=== PATIENT | female | born 1970 | race Caucasian/White ===

== ENCOUNTER 2023-02-26 15:16 | Outpatient (REF) | payer SELFPAY | END 2023-02-26 15:17 | disposition home or self-care (01) | LOC: HO.LNP 15:16 | PROVIDERS: Visit Provider Internal Medicine | DX: Z13.89 Encounter for screening for other disorder (principal) | CPT/HCPCS: 86481; 86706; 86735; 86762; 86765; 86787 ==

== ENCOUNTER 2024-12-03 03:44 | Emergency (ER) | payer OTHER, SELFPAY ==
--- NOTE | ~2024-12-03 | XR_ITS ---
CLINICAL HISTORY: s p fall 2 view right knee Comparison: None provided Findings: Bones intact. No dislocations. Mild medial compartment joint space narrowing. No joint effusion. No radiopaque foreign body. IMPRESSION: 1. No acute findings. This document has been electronically signed by: Malik Velazquez MD on 12/03/2024 06:18:46
[2024-12-03 03:51] VITALS: BP 144/77; PULSE 64; RESP 14; TEMP 36.6; O2SAT 98; BMI 26.9
--- NOTE | 2024-12-03 05:14 | PC.NURSE ---
pt reports R. knee pain intermittently up to 3, states does not need interventions at this time, offered ice or heat pack, tylenol/ibuprofen. call zuñiga within reach. awaiting xr of R. knee.
--- NOTE | 2024-12-03 05:40 | ED_ITS ---
HPI - Extremity Injury (Lower) General Chief Complaint: Extremity Injury, Lower Stated Complaint: workman comp, right knee injury Time Seen by Provider: 12/03/24 04:13 Source: patient Mode of arrival: ambulatory Limitations: no limitations History of Present Illness ED Provider: HPI Narrative: Patient works at [employer] apparently patient was responding to bed alarm walked fast and her right leg gave out patient fell hitting her head to the door complaining of right knee pain no loss of consciousness no other injuries patient did not have any knee pain or injuries in the past Related Data Allergies Allergy/AdvReac Type Severity Reaction Status Date / Time doxycycline AdvReac Nausea and Verified 12/03/24 03:54 Vomiting Review of Systems Review of Systems: Yes all other systems are reviewed and are negative [facility] Social History Social History Advance Directives: Yes Advance Directives Information Provided: Yes Advance Directives on File: No Physical Exam Vital Signs: Vital Signs: Last Vital Signs Temp 97.9 F 12/03/24 06:49 Pulse 64 12/03/24 06:49 Resp 14 12/03/24 06:49 BP 144/77 H 12/03/24 06:49 Pulse Ox 98 12/03/24 06:49 O2 Del Method Room Air 12/03/24 06:49 BMI result Body Mass Index 26.9 Appearance: Alert. Oriented X3. No acute distress. Eyes: PERRLA, No Nystagmus ENT: Pharynx normal. Oral Mucosa moist atraumatic normocephalic Neck: Normal inspection. Neck supple. CVS: Normal heart rate and rhythm. Pulses normal. Respiratory: No respiratory distress. Equal air entry bilateral, no wheezing/rales/rhonchi Abdomen: Soft and nontender. Bowel sounds are present, no mass palpable, no CVA tenderness Skin: Skin warm and dry. Normal skin color. Normal skin turgor. Extremities: No lower extremity edema. No calf tenderness right knee with diffuse tenderness no knee effusion anterior drawer sign and Angel sign negative Neuro: Oriented X 3. No motor deficit. No sensory deficit.No cerebellar signs , cranial nerves II-XII intact Medical Decision Making Medical Decision Making MDM Narrative: Patient clinically right knee contusion x-ray negative for acute knee immobilizer was applied advised to take analgesics apply ice follow up as outpatient if pain continues Independent Interpretation I performed an independent interpretation of an: Plain X-Ray Interpretation: No acute Discharge Plan Discharge Clinical Impression: Contusion of knee, right Patient Disposition: Home, Self-Care Instructions: Knee Pain (ED) Additional Instructions: Take Tylenol/Motrin for pain your x-rays negative for fracture or significant injury Wear knee brace for support till you get better Follow with your PCP as needed Interventions: ED Discharge Assessment Last Done: 12/03/24 06:49 Discharge Date/Time: 12/03/24 06:58 Print Language: Chadian
[2024-12-03 06:49] VITALS: BP 144/77; PULSE 64; RESP 14; TEMP 36.6; O2SAT 98
== END 2024-12-03 06:58 | disposition home or self-care (01) ==
PROVIDERS: Emergency Provider Internal Medicine; PCP Internal Medicine
DX: S80.01XA Contusion of right knee, initial encounter (principal); M25.561 Pain in right knee; X58.XXXA Exposure to other specified factors, initial encounter; Y93.9 Activity, unspecified; Y92.9 Unspecified place or not applicable; Y99.8 Other external cause status
CPT/HCPCS: 73560; 99283

== ENCOUNTER → 2024-12-03 04:21 | Outpatient (BNV) | payer OTHER, SELFPAY | PROVIDERS: Emergency Provider Internal Medicine; PCP Internal Medicine; Visit Provider Radiology Vascular & Interventional Radiology | DX: S80.01XA Contusion of right knee, initial encounter (principal) | CPT/HCPCS: 73560 ==

== ENCOUNTER 2025-05-24 08:48 | Outpatient (AMB) | payer OTHER, SELFPAY ==
--- NOTE | 2025-05-24 09:17 | A.PHYSOV ---
Vital Signs 05/24/25 09:19 Height 5 ft 4 in Weight 157 lb BMI 26.9 Intake Visit Reasons: NPV Self Ref- thoracic outlet syndrome Intake Note: Patient is a 54 year old female in office today as a new patient for neck pain that travels to shoulder on left side mainly. Patient seen in past for left side. Warehouse Stocker Required: No Allergies nitrofurantoin Allergy (Unknown, Verified 05/19/25 12:43) Unknown pseudoephedrine Allergy (Unknown, Verified 05/19/25 12:43) Unknown scopolamine Allergy (Unknown, Verified 05/24/25 09:19) Unknown doxycycline Adverse Reaction (Verified 12/03/24 03:54) Nausea and Vomiting HPI Comments Details: History of Present Illness The patient is a 54 year old female presenting for evaluation of suspected left-sided thoracic outlet syndrome. She is left-handed, and her current symptoms began approximately three months ago after she was exercising. She reports numbness and tingling in her left hand, a feeling of heaviness in the arm when raised overhead, significant neck fatigue, and constant muscle spasms in the neck region. The patient has a history of right-sided thoracic outlet syndrome, which was diagnosed approximately 6-7 years ago. At that time, symptoms were severe, causing her to drop items and have an inability to lift her arm above her head. It was managed non-surgically with two series of Botox injections into the scalene muscles and intensive physical therapy, and is now about 95% improved, though some weakness persists. A prior workup for her right-sided symptoms included a cervical spine MRI on February 26, 2017, which revealed mild degenerative changes. She has not had any recent imaging of her cervical spine since then and reports no recent injuries. For her current symptoms, she is doing home exercises with a assistant athletic trainer, who is also a physical therapist, and sees a chiropractor weekly for ultrasound and dry needling. She has been receiving physical therapy and has been performing physician guided home exercises. Pain Description - Onset and Timing: The pain started about 3 months ago and its occurrence is unpredictable, happening at any time, even at rest. - Quality and Character: The pain is described as very strong, tiring, and comparable to a severe toothache. - Location: The pain is primarily in the left neck and shoulder area. - Associated Symptoms: The pain is accompanied by numbness and tingling in the left hand, muscle spasms, and a feeling of heaviness in the arm when raised. - Exacerbating Factors: The pain can flare up after work or with certain movements like turning the neck. Results - Imaging: - Cervical Spine MRI (02/26/2017): Mild degenerative changes. [facility] Medical History (Updated 05/24/25 @ 09:44 by Omi Bess DO) Thoracic outlet syndrome Neck pain Cervical radiculitis Surgical History History of History of hernia repair History of cholecystectomy Social History Household Members: Spouse and Children Alcohol intake: current Alcohol intake frequency: does not drink Patient Tobacco Use Status: Never used Tobacco Current occupational status: employed Review of Systems Narrative Review of Systems - Musculoskeletal: Reports neck pain, constant muscle spasms in the neck, and a feeling of heaviness in the left arm when raised overhead. - Neurological: Reports numbness and tingling in the left hand. - Constitutional: Reports feeling tired from the pain. - All other systems were reviewed and are negative. Physical Exam Exam Exam: Physical Exam - General: Patient appears to have muscle tightness. - Neck: Palpation reveals tenderness and spasm in the upper trapezius/neck region. - Shoulder: No tenderness on palpation over the shoulder joint itself. - Special Tests: A positive Adson's test was noted on the left side. - Neurological: Spurling maneuver was negative. Neurological examination of upper extremities was nonfocal. Patient demonstrated no upper motor neuron signs. Cervical range of motion was preserved. Examination of the left shoulder was unremarkable negative Bauman and Neer signs, negative drop-arm test, negative shoulder apprehension test. Vital Signs: BMI result Body Mass Index 26.9 Assessment & Plan Assessment & Plan (1) Cervical radiculitis: Code(s): M54.12 - Radiculopathy, cervical region Category: Medical (2) Neck pain: Code(s): M54.2 - Cervicalgia Category: Medical (3) Thoracic outlet syndrome: Code(s): G54.0 - Brachial plexus disorders Category: Medical Plan Pain Management - Affect: The patient reports feeling tired from the amount of pain she experiences. - Analgesia: The patient describes her pain as strong when it occurs, similar to a severe toothache. - Activities of Daily Living: The pain can flare up after work. - Aberrant Drug-Related Behaviors: No aberrant drug-related behaviors were discussed. Plan Patient was informed and verbally consented to the use of an ambient scribe for clinic note documentation during this visit. 1. Left Upper Extremity Pain And Paresthesia The patient presents with left-sided neck and arm symptoms including pain, numbness, and tingling, which she suspects is thoracic outlet syndrome given her history. The initial approach is to evaluate for more common causes, specifically cervical radiculopathy, before considering thoracic outlet syndrome. The plan is to obtain a cervical spine X-ray and MRI to assess for any underlying pathology. The patient will proceed with the X-ray and await a call for MRI scheduling after insurance approval. Follow-up will be scheduled in approximately one month to review the results, with the understanding that the appointment may need to be postponed if the MRI is not yet completed. Discussion Notes I discussed with the patient that while her symptoms could be consistent with thoracic outlet syndrome, we should first investigate more common causes, such as a cervical spine issue like radiculopathy. I explained the plan to order a cervical spine X-ray and MRI. I informed her that she could get the X-ray done at her convenience at [facility], but the MRI requires insurance approval, and the imaging department will call her to schedule it. We will schedule a follow-up appointment in about a month, but I advised her to postpone it if the MRI has not been completed by then, as the results are necessary for our next steps. The patient agreed with this plan, stating it would provide peace of mind to differentiate between a neck issue and thoracic outlet syndrome. Patient Instructions - Continue with your home exercises as you have been doing. - Go to [facility] to have an X-ray of your neck. - You will need an MRI of your neck, which requires insurance approval. Please wait for the hospital to call you to schedule this test. - We will schedule a follow-up appointment for about one month from now. - If you have not completed the MRI by the time of your next appointment, please call the office to reschedule. Orders: Orders MR cervical spine wo con Today M54.12 - Radiculopathy, cervical region, M54.2 - Cervicalgia XR cervical spine 3V Today M54.12 - Radiculopathy, cervical region, M54.2 - Cervicalgia Coding Level of Care Code New Pt Level 4 (40681) Add On Problem Visit Only Diagnoses Cervical radiculitis M54.12 Neck pain M54.2 Thoracic outlet syndrome G54.0
[2025-05-24 09:19] VITALS: BMI 26.9
== END 2025-05-24 09:43 | disposition home or self-care (01) ==
LOC: HO.HPHYS 08:49
PROVIDERS: PCP Internal Medicine; Visit Provider Physical Medicine & Rehabilitation
DX: M54.12 Radiculopathy, cervical region (principal); M54.2 Cervicalgia; G54.0 Brachial plexus disorders
CPT/HCPCS: 99204

== ENCOUNTER 2025-05-25 07:29 | Outpatient (REF) | payer OTHER, SELFPAY ==
--- NOTE | ~2025-05-25 | XR_ITS ---
EXAMINATION: XR CERVICAL SPINE 4-5 VIEWS HISTORY: M54.12 - Radiculopathy, cervical region COMPARISON: There are no prior studies available for comparison. FINDINGS: AP, lateral, and open-mouth odontoid views of the cervical spine are submitted. Osseous mineralization is normal. Seven cervical vertebral bodies are identified maintaining normal height without evidence of fracture or subluxation. There is straightening of the normal cervical lordosis. There is mild degenerative disc disease with disc space narrowing and osteophyte formation. This is most prominent at C5-6 level. The odontoid and lateral masses of C1 are intact. There is no prevertebral soft tissue swelling. XR/XR cervical spine 4V IMPRESSION: Straightening of the normal cervical lordosis. Mild degenerative disc disease. Electronically signed by: Tod Castillo MD 05/25/2025 07:53 AM STEVE
--- OUTSIDE RECORDS SUMMARY | 2025-05-25 07:32 | XMS_ITS | Clinical Summary ---
Author Organization [facility] [employer] [facility] it Address [address] [place] [address] Care Team Providers Care Student Counselor Name Role Phone Jose Ramos MD Primary Care Provider [phone] Social History Tobacco Use Types Packs/Day Years Used Date Smoking Tobacco: Never Assessed Comments Unknown Sex and Gender Information Value Date Recorded Sex Assigned at Not on file Legal Sex Female 8:14 AM EST Gender Identity Not on file Sexual Orientation Not on file Plan of Treatment Health Maintenance Due Date Last Done Comments DTaP,Tdap,and Td Vaccines (1 - Tdap) 09/22/1990 06/09/2010 Hepatitis B Vaccines (1 of 3 - 19+ 3-dose series) 09/22/1990 Cervical Cancer Screening: Pap Smear 09/22/1992 Pneumococcal Vaccine: 50+ Years (1 of 1 - PCV) 09/22/2021 10/18/2007 Zoster Vaccines (1 of 2) 09/22/2021 07/14/2023, 02/12 Breast Cancer Screening 02/21/2023 02/21/2021 Depression Screening 06/14/2024 COVID-19 Vaccine ( - 2024- season) 2025 04/07/2024, 04/30/2023, 04/02/2021, Additional history exists Influenza Vaccine (#1) 2025 , 05/31/2023, 04/01/2020, Additional history exists RSV Immunization Adult Patients (1 - 1-dose 75+ series) 09/22/2046 HIB Vaccines Aged Out No longer eligi ble based on patient's age to complete this topic HPV Vaccines Aged Out No longer eligi ble based on patient's age to complete this topic Hepatitis A Vaccines Aged Out No long er eligible based on patient's age to complete this topic IPV Vaccines Aged Out No longer eligi ble based on patient's age to complete this topic MMR Vaccines Aged Out No longer eligi ble based on patient's age to complete this topic Meningococcal ACWY Vaccine Aged Out N o longer eligible based on patient's age to complete this topic Meningococcal B Vaccine Aged Out No l onger eligible based on patient's age to complete this topic RSV Immunization Patients Under 20 months Aged Out No longer eligible based on patient's age to complete this topic Varicella Vaccines Aged Out 07/14/2023, 03/02/2023 No longer eligible based on patient's age to complete this topic Procedures Procedure Name Priority Date/Time Associated Diagnosis Comments [facility] Routine 02/21/2021 11:45 AM EDT Encounter for screening mammogram for malignant neoplasm of breast from Last 3 Months or Most Recently Relevant to Health Maintenance Results * [facility] SCREENING DIGITAL (02/21/2021 11:45 AM EDT) Anatomical Region Laterality Modality Mammography 02/21/2021 8:21 AM EDT Narrative 02/21/2021 11:45 AM EDT [facility] Diagnostic Imaging Department [address] [place] [address] Patient: MAXINE WU Kat /Age/Sex: 1970 - 50 - F Unit#: [id number] [facility] Mnemonic/Ordering Site: [facility] Ordering Physician: HEIKE SIEGEL MD Huang Screening Digital - 02/21/21851 EXAM: [facility] Screening Digital EXAM DATE AND TIME: 02/21/2021 8:54 AM HISTORY: Screening. COMPARISON: 01/13/17, 09/13/13 TECHNIQUE: CC and MLO views of both breasts were obtained using full field digital mammography. Bilateral digital breast tomosynthesis was performed in the MLO projection. Computer aided detection with the [employer] was employed. TISSUE DENSITY: c. The breasts are heterogeneously dense, which may obscure small masses. FINDINGS: No suspicious masses, grouped microcalcifications, or areas of architectural distortion are seen. The skin and vascularity are unremarkable. IMPRESSION: Stable mammographic appearance of the breasts. No evidence of malignancy is seen. A negative mammogram in the presence of a clinically suspicious palpable abnormality does not preclude the possibility of malignancy or alter the indications for biopsy. BI-RADS: Category 1: Negative RECOMMENDATION(S): 1: Routine screening mammogram BILATERAL in 1 year. 64907, 18434 3341F, 7025F Dictating Physician: THEO LAWSON MD Electronically Signed by: THEO LAWSON MD Dic Date/Time: 02/21/21 1145 Sign date/Time: 02/21/21 1145 Procedure Note Theo Lawson MD - 06/10/2022 [facility] Diagnostic Imaging Department [address] [place], [place] [id number] Patient: MAXINE WU/Age/Sex: 1970 - 50 - F Unit#: [id number] [facility] Ordering Physician: HEIKE SIEGEL MD [facility] Screening Digital - 02/21/21 - 851 EXAM: Huang Screening Digital EXAM DATE AND TIME: 02/21/2021 8:54 AM HISTORY: Screening. COMPARISON: 01/13/17, 09/13/13 TECHNIQUE: CC and MLO views of both breasts were obtained using fullfield digital mammography. Bilateral digital breast tomosynthesis was performedin the MLO projection. Computer aided detection with the [employer] employed. TISSUE DENSITY: c. The breasts are heterogeneously dense, which mayobscure small masses. FINDINGS: No suspicious masses, grouped microcalcifications, or areas ofarchitectural distortion are seen. The skin and vascularity are unremarkable. IMPRESSION: Stable mammographic appearance of the breasts. No evidence of malignancyis seen. A negative mammogram in the presence of a clinically suspicious palpable abnormality does not preclude the possibility of malignancy or alter the indications for biopsy. BI-RADS: Category 1: Negative RECOMMENDATION(S): 1: Routine screening mammogram BILATERAL in 1 year. 56187, 06554 3341F, 7025F Dictating Physician: THEO LAWSON MD Electronically Signed by: THEO LAWSON MD Dic Date/Time: 02/21/21 1145 Sign date/Time: 02/21/21 114 Heike Siegel MD IMG BI PROCEDURES Final Resu lt from Last 3 Months or Most Recently Relevant to Health Maintenance Care Teams Student Counselor Relationship Specialty Start Date End Date Jose Ramos MD [address] [facility] [phone] PCP - General Internal Medicine 01/15/17
--- OUTSIDE RECORDS SUMMARY | 2025-05-25 07:33 | XMS_ITS | Patient Health Record ---
Author Organization [facility] Address [address] [place] [id number] Care Team Providers Care Clinique Counter Manager Name Role Phone Kevin Sprague Unavailable [phone] Allergies Allergen (clinical drug ingredient) Drug/Non Drug Allergy documented on EMR Reaction Allergy Type Onset Date Status doxycycline Doxycycline Unknown Drug Allergy Act kan Reason For Referral No Information Medications Medication SIG (Take, Route, Fr equency, Duration) Notes Start Date End Date Status traMADol HCl 50 MG 1 tablet as needed O rally Once a day HS Active Methocarbamol 1500 MG HS Activ e Problems Problem Type SNOMED Code ICD Code Onset Dates Problem Status W/U Status Risk Notes Problem Mixed hyperlipidemia (185570983) Mixed hyperlipidemia (E78.2) Active confirmed Problem Brachial plexus disorder (2608393) Brachial plexus disorders (G54.0) Active confirmed Problem Menopause (410149295) Menopausal and female climacteric states (N95.1) Active confirmed Plan Of Treatment Pending Test Test Name Order Date COMPREHENSIVE METABOLIC PANEL 10/18/2023 IRON, TOTAL 10/18/2023 CBC (INCLUDES DIFF/PLT) 10/18/2023 CARDIO IQ(TM) HEMOGLOBIN A1c 10/18/2023 DHEA SULFATE 10/18/2023 VITAMIN B12/FOLATE, SERUM PANEL 10/18/19 24 FERRITIN 10/18/2023 TSH W/REFLEX TO FT4 10/18/2023 PREGNENOLONE, LC/MS/MS 10/18/2023 CARDIO IQ(R) ADVANCED LIPID PANEL AND IN FLAMMATION PANEL 10/18/2023 Cardio IQ(R) Oxidized LDL 10/18/2023 OMEGACHECK(TM) 10/18/2023 CARDIO IQ(R) INSULIN RESISTANCE PANEL WI TH SCORE 10/18/[address] Score 10/18/2023 Insurance Providers Payer Name Payer Address Payer Phone Subscriber Number Group Number Insured Name Patient Relationship to Insured Coverage Start Date Coverage End Date [employer] [address] [place] [id number] Kenzie Khalil Self - patient is the insured 4 Medical (General) History Medical History History ICD Code cholecystectomy
--- OUTSIDE RECORDS SUMMARY | 2025-05-25 07:33 | XMS_ITS ---
[facility] Name [facility] History of Medication Use Medication Directions Dispensed Refills Start Date End Date Stat us Methocarbamol Methocarbamol acti ve traMADol HCl 50 MG traMADol HCl 50 MG active Allergies Allergen Reaction Severity Comment Documented Date Source Statu s DOXYCYCLINE CT_[facility] Encounters Encounter Type Encounter Reason Primary Diagnosis Location Date [facility] 11/16/2023 [facility] 10/18/2023 [facility] 07/28/2023 Care Team Organization Name Specialty Phone Email Start Date End Da te [facility] Carolynn Olvera Primary [facility] 07/29/202305/08
--- OUTSIDE RECORDS SUMMARY | 2025-05-25 07:33 | XMS_ITS | Patient Health Record ---
Author Organization [facility] Address [address] [place] [address] Care Team Providers Care Flexographic Press Operator Name Role Phone Richard Bull MD, Jose Primary Care Provider Unavail able Carolynn Hernandez Unavailable [phone] Allergies Allergen (clinical drug ingredient) Drug/Non Drug Allergy documented on EMR Reaction Allergy Type Onset Date Status doxycycline Doxycycline diarreah Drug Allergy Act kan scopolamine Scopolamine blurry vision Drug Allergy Active Reason For Referral No Information Medications Medication SIG (Take, Route, Frequency, Duration) Notes Start Date End Date Status Methocarbamol 1000 MG/10ML 10 mL as need ed Injection every 8 hrs; Duration: 3 day(s) 08/04/2023 Active Ultram 50 MG 1 tablet as needed Orally every 6 hrs Active Robaxin 500 MG 1.5 tablets Orally e very 4 hrs Unknown Social History Tobacco Use: Social History Observation Description Date Details (start date - stop date) Never Smoker NA - NA Tobacco Use/Smoking Question Answer Notes Are you a: nonsmoker Additional Findings: Tobacco Non-User Current no n-smoker Alcohol Screen Question Answer Notes Did you have a drink containing alcohol in the p ast year? No Points 0 Interpretation Negative Tobacco use other than smoking: Question Answer Notes Are you an other tobacco user? No Problems No Known Problems Plan Of Treatment Pending Test Test Name Order Date 42024 I&D ABSCESS- SIMPLE,SINGLE 018 Insurance Providers Payer Name Payer Address Payer Phone Subscriber Number Group Number Insured Name Patient Relationship to Insured Coverage Start Date Coverage End Date Cigna [address] [place]anisha [place], [place] [phone] [id number] MARIAM WU Spouse - patient is the spouse of the insured Medical (General) History Medical History History ICD Code Back,Hip,and Knee pain Broken bones covid-19 Reflux ( GERD) Sciatica Surgical History Surgery Date(Month/Year) section 2002 Hernia Repair & Lap allan 2016
== END 2025-05-25 07:30 | disposition home or self-care (01) ==
LOC: HO.XRAY 07:29
PROVIDERS: Visit Provider Physical Medicine & Rehabilitation
DX: M54.12 Radiculopathy, cervical region (principal)
CPT/HCPCS: 72050

== ENCOUNTER → 2025-05-25 07:34 | Outpatient (BNV) | payer OTHER, SELFPAY | PROVIDERS: Visit Provider Radiology Diagnostic Radiology | DX: M54.12 Radiculopathy, cervical region (principal); M50.30 Other cervical disc degeneration, unspecified cervical region | CPT/HCPCS: 72050 ==

== ENCOUNTER 2025-06-12 19:21 | Outpatient (REF) | payer OTHER, SELFPAY ==
--- OUTSIDE RECORDS SUMMARY | 2017-02-25 23:00 | XMS_ITS | Encounter Summary ---
Author Organization [facility] Address [address] [place] [address] [place] [id number] Phone Care Team Providers Care Assistant Professor Of Physics Name Role Phone Unavailable Primary Care Provider Unavailabl e Reason for Visit * MRI/CAT Scan - Closed Specialty Diagnoses / Procedures Referred By Contelie t Referred To Contact Procedures MRI Spine (Bone) Outside (No Interpretation) Lakisha Du DO [address] [facility] [place] [address] Phone: tel: fax: [email or web address] Referral ID Status Reason Start Date Expiration Date Visits Re quested Visits Authorized [id number] Closed 10/12/2017 10/12/2018 1 1 Encounter Details Date Type Department Care Team (Late st Contact Info) Description 02/26/2017 Hospital Encounter [facility] General Imaging [address] [place] [address] Lakisha Du DO [address] [id number] [place] [address] [email or web address] Social History Tobacco Use Types Packs/Day Years Used Date Smoking Tobacco: Never Smokeless Tobacco: Never Alcohol Use Standard Drinks/Week Comments No 0 (1 standard drink = 0.6 oz pur e alcohol) Education Answer Date Recorded Are you interested in more education? Not on humza e 10/09/2022 Are you concerned about learning? Not on file 10/09/2022 No 10/09/2022 No 10/09/2022 Digital Access Answer Date Recorded No 11/07/2022 No 11/07/2022 No 11/07/2022 Reliable internet access at home? Not on file 11/07/2022 Device with a working camera? Not on file Comments Unknown Sex and Gender Information Value Date Recorded Sex Assigned at Not on file Legal Sex Female 12:39 PM EDT Gender Identity Not on file Sexual Orientation Not on file documented as of this encounter Plan of Treatment Not on file documented as of this encounter Procedures Procedure Name Priority Date/Time Associated Diagnosis Comments MRI SPINE MUSCULOSKELETAL FOCUS OUTSIDE (NO INTERPRETATION) Routine 02/26/2017 12:00 AM EDT documented in this encounter Results * MRI Spine (Bone) Outside (No Interpretation) (02/26/2017 12:00 AM EDT) Narrative [facility] IMG INTERFACES - 10/12/2017 9:16 AM EDT This study is for PACS storage only and not for interpretation. Lakisha uD DO IMG OUTSIDE IMAGING W/OUT INT ERPRETATION Final Result [facility] IMG INTERFACES documented in this encounter Visit Diagnoses Not on filedocumented in this encounter Additional Source Comments The information contained in this document represents components of the legal health record. It is not the complete legal health record.[facility]
--- NOTE | ~2025-06-12 | MR_ITS ---
EXAMINATION: MR CERVICAL SPINE WITHOUT CONTRAST CLINICAL INFORMATION: Cervicalgia. 54-year-old female, workup for thoracic outlet syndrome. Left arm weakness, pain, and numbness. COMPARISON: No prior MRI. Correlation made with cervical spine radiographs 05/25/2025. TECHNIQUE: Multiplanar multisequence MR imaging of the cervical spine was done prior to and without the administration IV gadolinium. Examination was performed on a 1.5 Shelbie Siemens unit, using standard sequences. FINDINGS: CORONAL ALIGNMENT: -Normal. SAGITTAL ALIGNMENT: -Straightening of the normal lordosis. -No significant subluxations. CRANIOCERVICAL JUNCTION/C1-2 ARTICULATIONS: -Intact and normally aligned. VERTEBRAL BODIES/BONE MARROW: -There is no fracture, compression deformity, or region of bone marrow edema. There is no abnormal infiltrating bone marrow signal. -There are no significant endplate changes. DISCS: -There is moderate loss of disc height and signal at C5-6. -There is otherwise mild loss of height and signal at the other levels. CERVICAL CORD: -Normal in caliber and signal throughout. There is no expansion, thinning, or signal abnormality. There is no regional cord impingement present. PARAVERTEBRAL SOFT TISSUES: -Normal. -The thyroid is obscured by a saturation band. VISUALIZED INTRACRANIAL STRUCTURES: -Imaged contents of the posterior fossa are normal in appearance. Preserved flow voids within the bilateral vertebral arteries. Normal-appearing sella. AXIAL DISC SPACE IMAGING: C2-C3: No central canal or neural foraminal narrowing. Mild hypertrophic facet changes bilaterally, contributing to minimal right greater than left neural foraminal stenosis. C3-C4: No significant central canal or neural foraminal narrowing. Mild right greater than left hypertrophic facet changes contributes to mild right greater than left neural foraminal narrowing. C4-C5: Minimal shallow disc bulging is present. There is no central canal stenosis. The neural foramina are patent bilaterally. C5-C6: There is no central canal or lateral recess narrowing. Mild bilateral uncinate spurring contributes to mild bilateral neural foraminal narrowing left greater than right. C6-C7: There is a left paracentral small protrusion of disc material. This indents upon the ventral thecal sac but does not approach the cord. There is no central canal or neural foraminal narrowing. C7-T1: There is no central canal or neural foraminal narrowing. There is mild facet arthrosis bilaterally. T1-T4: No central canal or neural foraminal narrowing. MR/MR cervical spine wo con IMPRESSION: 1. Very mild spondylosis of the cervical spine. 2. There is no evidence of significant central canal stenosis, cord impingement or signal abnormality, or significant neural foraminal narrowing at any level. See above for details. Electronically signed by: Brian Osorio MD 06/13/2025 08:22 AM STEVE
--- OUTSIDE RECORDS SUMMARY | 2025-06-12 19:28 | XMS_ITS | Encounter Summary ---
Author Organization [facility] Address [address] [place] [address] Phone Care Team Providers Care Mental Retardation Nurse Name Role Phone Jose Ramos MD Primary Care Provider [phone] Encounter Details Date Type Department Care Team (Late st Contact Info) Description 10/12/2017 Procedure Pass [facility] [address] [place] [address] Social History Tobacco Use Types Packs/Day Years Used Date Smoking Tobacco: Never Smokeless Tobacco: Never Alcohol Use Standard Drinks/Week Comments No 0 (1 standard drink = 0.6 oz pur e alcohol) Comments Unknown Sex and Gender Information Value Date Recorded Sex Assigned at Not on file Legal Sex Female 12:39 PM EDT Gender Identity Not on file Sexual Orientation Not on file documented as of this encounter Plan of Treatment Not on file documented as of this encounter Visit Diagnoses Not on filedocumented in this encounter Care Teams Mental Retardation Nurse Relationship Specialty Start Date End Date Jose Ramos MD [address] [facility] [place] [address] PCP - General Internal Medicine 04/06/17 documented as of this encounter Additional Source Comments The information contained in this document represents components of the legal health record. It is not the complete legal health record.[facility]
--- OUTSIDE RECORDS SUMMARY | 2025-06-12 19:28 | XMS_ITS | Patient Health Record ---
Author Organization [facility] Address [address] [facility] [place] [address] Care Team Providers Care Home Planning Consultant Salesperson Name Role Phone Richard Bull MD, Jose Primary Care Provider Unavail able Carolynn Hernandez Unavailable [phone] Allergies Allergen (clinical drug ingredient) Drug/Non Drug [...] Treatment Pending Test Test Name Order Date 00092 I&D ABSCESS- SIMPLE,SINGLE 018 Insurance Providers Payer Name Payer Address Payer Phone Subscriber Number Group Number Insured Name Patient Relationship to Insured Coverage Start Date Coverage End Date Cigna [address] [place]anish[place], [place] [phone] [id number] MARIAM WU Spouse - patient is the spouse of the insured Medical (General) History Medical History History ICD Code Back,Hip,and Knee pain Broken bones covid-19 Reflux ( GERD) Sciatica Surgical History Surgery Date(Month/Year) section 2002 Hernia Repair & Lap allan 2016
--- OUTSIDE RECORDS SUMMARY | 2025-06-12 19:28 | XMS_ITS | Encounter Summary ---
Author Organization [facility] Address [address] [place] [phone] Phone Care Team Providers Care Reed Polisher Name Role Phone Jose Ramos MD Primary Care Provider [phone] Encounter Details Date Type Department Care Team (Late st Contact Info) Description 10/28/2018 Transcribe Orders [facility], Radio Flouroscopy [address] [place] [address] Bonita Marte, [address] [place] [phone] [email or web address] Social History Tobacco Use Types Packs/Day Years [...] on filedocumented in this encounter Care Teams Reed Polisher Relationship Specialty Start Date End Date Jose Ramos MD [address] [facility] [place] [address] PCP - General Internal Medicine 04/06/17 documented as of this encounter Additional Source Comments The information contained in this document represents components of the legal health record. It is not the complete legal health record.[facility]
--- OUTSIDE RECORDS SUMMARY | 2025-06-12 19:28 | XMS_ITS | Data Portability ---
Author Organization [place] - [facility],, HEIKE CHERY MD Address [address] [address] Care Team Providers Care Netting Weaver Name Role Phone GRAHAM PEREZ Primary Care Provider [phone] Assessment No assessment recorded. Plan of Treatment Reminders Order Date Submit Date Provider Last Modified By Organization Details Last Modified Time Details Appointments None recorded. Lab cytology report, thin prep, smear or scraping, cervical or vaginal 2024 025 GIACOMO [facility] (Centralized Electronic Ordering - All Locations), Patient Can Go To The Location Of Their Choice, [id number] 5 16:31:34 hemoglobin , gastrointe stinal, stool 2024 025 [email or web address] 1 In-Office Order, Internal Use Only DO Not Attach Compendium DO Not Attach Compendium, Do Not Delete/merge, [id number] 5 14:42:45 biopsy, endometria l 2023 024 [email or web address] [facility] (Centralized Electronic Ordering - All Locations), Patient Can Go To The Location Of Their Choice, [id number] 4 07:19:31 pap test, thinprep, cervical 2023 024 [email or web address] [facility] (Centralized Electronic Ordering - All Locations), Patient Can Go To The Location Of Their Choice, [id number] 4 07:32:01 estradiol, serum 2023 024 GIACOMO [facility] (Centralized Electronic Ordering - All Locations), Patient Can Go To The Location Of Their Choice, 4 20:22:54 FSH (follicle- stimulatin g hormone), serum 2023 024 GIACOMO [facility] (Centralized Electronic Ordering - All Locations), Patient Can Go To The Location Of Their Choice, [id number] 4 20:22:55 fecal occult blood, stool 2023 024 [email or web address] 1 In-Office Order, Internal Use Only DO Not Attach Compendium DO Not Attach Compendium, Do Not Delete/merge, [id number] 4 08:40:56 urinalysis , dipstick 2020 021 [email or web address] 1 In-Office Order, Internal Use Only DO Not Attach Compendium DO Not Attach Compendium, Do Not Delete/merge, [id number] 08:42:01 culture, urine 2020 021 fflap, [address] [facility], [place], [address], 12:15:57 wet mount, vaginal 2020 021 [email or web address] 1 In-Office Order, Internal Use Only DO Not Attach Compendium DO Not Attach Compendium, Do Not Delete/merge, [id number] 09:08:00 test, urine 2020 021 [email or web address] 1 In-Office Order, Internal Use Only DO Not Attach Compendium DO Not Attach Compendium, Do Not Delete/merge, [id number] 09:08:35 Referral None recorded. Procedures biopsy, endometriu m (PROC) 2023 024 [email or web address] In-Office Order, Internal Use Only DO Not Attach Compendium DO Not Attach Compendium, Do Not Delete/merge, [id number] 4 15:23:50 Surgeries None recorded. Imaging MAMMO, screening, digital, bilateral - Breast Aspiration and/or Biopsy if needed 2024 025 [facility] (Imaging), [address] [place], [address], 5 14:49:37 MAMMO, screening, digital, bilateral - Breast Aspiration and/or Biopsy if needed 2023 024 zakia [facility], [address], [place], [address], 5 07:12:38 Medication Orders Estring 2 mg (7.5 mcg/24 hour) vaginal ring 2024 025 Pending sale to [facility], [address] [place] [address], [address], 5 14:42:47 estradiol 1 mg tablet 2024 025 Pending sale to [facility], [address] [place] [address], [address], 5 14:42:47 progestero ne micronized 200 mg capsule 2024 025 Pending sale to [facility], [address] [place] [address], [address], 5 14:42:47 estradiol 1 mg tablet 2023 024 [id number], [address] [place], [address], 4 09:44:06 progestero ne micronized 200 mg capsule 2023 024 [id number], [address] [place], [address], 4 09:44:06 fluconazol e 150 mg tablet 2020 021 [id number] [address] [place], [address], 4 08:04:19 Patient TargetsNo targets recorded. Patient Instructions Encounter Date Encounter Id Patient Instructions Last Modified By Organization Details Last Modified Time 04/29/2021 [id number] urinary tract infection in women information Not available 04/29/2021 08:42:00 vaginal yeast infection: care instructions Not available 04/29/2021 08:42:13 She is here for a 5 day complaint of right sided pelvic pain, and vaginal pruritus. IT started as right back pain in her upper back, she went to a stretch therapist to see if it would stretch out, but it persisted. Then the pain migrated to her lower right front pelvis, then a day later to her bladder where she notes tight bladder, spasms. After that she noted pain in her urethra. Her urine was white and cloudy. Since yesterday her urine has improved and her pain is nearly resolved, but she still is having vaginal pruritis. Menses are irregular every 1 to 2 months or so, is s/p vasectomy. Check urine for culture. Urine dip mostly unremarkable. Urine HCG is negative. She has monilia vagintis, rx diflucan. She has a 3 cm right ovarian cyst, it is not very tender on exam. She is offered pelvic sonogram however as her symptoms are improving she elects to wait for now, and call if she wants a sonogram done. Her symptoms are consistent with passing a renal stone, and we discussed this at length. 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 She will call for sonogram if the pain persists after menses, or worsens. All questions answered. Face to face discussion 30 minutes Not available 04/29/2021 09:11:54 08/19/2023 [id number] learning about healthy weight Not available 08/19/2023 08:35:12 vaginal bleeding after menopause: care instructions Not available 08/19/2023 08:35:59 She is here for annual, and a concern of possible PMB. She had not had any menses in 14 to 18 months, and then last week she had a full on period, with clots. The bleeding is resolved now. she was having vasomotor symptoms prior to last month, they stopped recently and at present she has no vasomotor symptoms. She takes no herbal therapy ro supplement for menopause, she was taking Remivfemin but not in months, she could not find it on [facility] due to back orders. She moved from [facility] to [facility], is a night nurse ther, likes it very much. Her did not attempt (suicide) last year, that's a plus! and her son's depression is ell stabilized on meds. _ Not from 2020: She is here for annual doing well but under stress, having vasomotor symptoms on and off. 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 __ She appears to be doing well. Check FSH and estradiol for possible PMB, if labs in post menopause range will need sono and emb, if not in menopause range was likely the last hurrah this was explained. She notes that if her vasomotor symptoms return I don't want to live like that and she will call for telehealth to discuss possible HRT. Her maternal aunt had cervical cancer, she is strongly advised to get annual pap, and why. Monthly self breast exam was taught, and stressed, and is advised to call if she discovers any new mass in the breast. Not available 08/19/2023 08:43:17 08/31/2023 [id number] postmenopausal bleeding information Not available 08/31/2023 14:42:24 endometrial biopsy: about this test Not available 08/31/2023 14:42:24 She is here for emb for pmb, her labs are in the menopause range. She tolerated emb well, post procedure care discussed. Await results. Not available 08/31/2023 14:43:10 09/09/2023 [id number] This visit is a phone telehealth visit. The patient consented to the visit by phone. The patient was at home at the time of the call and the provider and patient were the only people on the line. I was at [address] [facility], [address], [place], [place], at the time of the call. She had a recent bleeding episode and she was severe vasomotor symptoms prior to that, after the menses she felt better for a while but now she is having severe hot flashes, night sweats, mood instability. We discussed having her begin to take hormone replacement therapy. We discussed the need to take a progestin if a uterus is present, and the rationale behind that. We discussed the stated risks of one in 10,000 of development o fa blood clot/DVT/PE that could be life threatening. We discussed the Women's Health Initiative study and the findings. We discussed the PEPPI study as well. She is aware that there are conflicting reports in the medical literature concerning the risks and benefits of HRT. We discussed that women are advised by ACOG to take HRT in the lowest dose necessary, and for the shortest time necessary, to control their symptoms. After a long discussion of the potential risks and benefits of HRT she elects to begin HRT. All questions answered. Rx for HRT is called in to the pharmacy. Call if any vaginal bleeding occurs upon initiation of HRT, or at any time postmenopausally. Face to face discussion for 27 minutes. Not available 09/09/2023 10:00:31 10/02/2024 [id number] atrophic vaginitis: care instructions Not available 10/02/2024 14:42:45 learning about healthy weight Not available 10/02/2024 14:42:45 She is here for annual, doing well on the oral HRT but is starting to have urinary stress incontinence, is wearing a underwear with pad every day now. No vaginal bleeding since last visit. __ Note from 2023: She is here for annual, and a concern of possible PMB. She had not had any menses in 14 to 18 months, and then last week she had a full on period, with clots. The bleeding is resolved now. she was having vasomotor symptoms prior to last month, they stopped recently and at present she has no vasomotor symptoms. She takes no herbal therapy ro supplement for menopause, she was taking Remivfemin but not in months, she could not find it on [facility] due to back orders. She moved from [employer] [employer] [facility] to [facility], is a night nurse ther, likes it very much. Her did not attempt (suicide) last year, that's a plus! and her son's depression is ell stabilized on meds. _ She appears to be doing well. We discussed options of vaginal estradiol cream, tabs or ring she prefers ring, rx for Estring called in. How to use it detailed. We discussed having her continue to take hormone replacement therapy. We discussed the need to take a progestin if a uterus is present, and the rationale behind that. We discussed the stated risks of one in 10,000 of development of a blood clot/DVT/PE that could be life threatening. We discussed the Women's Health Initiative study and the findings. We discused the PEPPI study as well. She is aware that there are conflicting reports in the medical literature concerning the risks and benefits of HRT. We disussed that women are advised by ACOG to take HRT in the lowest dose necessary, and for the shortest time necessary, to control their symptoms. After a long discussion of the potential risks and benefits of HRT she elects to continue HRT. All questions were answered. Rx for HRT is called in to the pharmacy. Call if any vaginal bleeding occurs upon initiation of HRT, or at any time postmenopausally. Not available 10/02/2024 14:46:52 Reason for Referral None Reported. Results Created Date Observation Date Name Description Value Unit Range Abnormal Flag Note LastModifiedBy Organization Detail LastModifiedTime 04/29/2004/29/2021 URINE CULTU RE comments [facility] jacob muñoz, becky clementbe r of May ty [address] [place] [address] Medic al Dire sara mariee MD [facility] E: URINE ,SHANTEL N CATCH ; Not Available [facility] [address] [place] [address], [place], [address], 05/01/2021 08:06:20 04/29/20 21 04/30/2021 URINE CULTU RE urine culture [facility] becky duarnt mem[facility] [address] [place] [address] Medic al [facility] sara mariee MD [facility] CTION TIME: 04/29 8:00: 00 AM -05:0 0 URINE CULTU RE ESCHE CELSO A COLI ( ESCCO L ) F URINE CULTU RE COLON Y COUNT F URINE CULTU RE >100, 000 F Not Available [facility] [address] [place], [address], 05/01/2021 08:06:20 04/29/20 21 04/29/2021 GRAM NEGAT TASHA SUSCE PTIBI LITY comments PAREN T ORGAN ISM: ESCHE CELSO A COLI ( ESCCO L ) [facility] atori es, a membe r of May ty [facility] Of [address] [place] [address] Medic al Direc sara mariee MD [facility] E: URINE ,SHANTEL N CATCH ; Not Available [facility] [address] [place] [address], [address], 05/01/2021 08:06:26 04/29/20 21 04/30/2021 GRAM NEGAT TASHA SUSCE PTIBI LITY gram negative susceptibili ty [facility], a mem[facility] r of [facility] Of [address] [place] [address] Medic al Direc sara mariee MD COLLE CTION TIME: 04/29 8:00: 00 AM -05:0 0 TRIME THOPR IM/VEE LFAME THOXA ZOLE <=20 S F AMOXI CILLI N/CLA VULAN IC ACID 4 S F AMPIC ILLIN 4 S F AMPIC ILLIN /SULB ACTAM <=2 S F CEFAZ REY <=4 S F CEFTA ZIDIM E <=1 S F CEFTR IAXON E <=1 S F CEFEP RICARDO <=1 S F CIPRO FLOXA THOMPSON <=0.2 5 S F ERTAP ENEM <=0.5 S F GENTA MICIN <=1 S F LEVOF LOXAC IN <=0.1 2 S F IMIPE NEM <=0.2 5 S F NITRO FURAN TOIN <=16 S F TOBRA MYCIN <=1 S F PIPER ACILL IN/TA ZOBAC ELENA <=4 S F Not Available [facility] [address] [place] [address], [address], 05/01/2021 08:06:26 04/29/20 21 04/29/2021 pregn allan test, urine HCG negati ve Not Available In-Office Order Internal Use Only DO Not Attach Compendium DO Not Attach Compendium, Do Not Delete/merge, [facility] 04/29/2021 09:08:29 04/29/20 21 04/29/2021 wet mount , vagbipin milan Clue Cells negati ve Not Available In-Office Order Internal Use Only DO Not Attach Compendium DO Not Attach Compendium, Do Not Delete/merge, [facility] 04/29/2021 08:42:06 04/29/20 21 04/29/2021 wet mount , vagbipin al Trichomonas negati ve Not Available In-Office Order Internal Use Only DO Not Attach Compendium DO Not Attach Compendium, Do Not Delete/merge, [facility] 04/29/2021 08:42:06 04/29/20 21 04/29/2021 wet mount , vagbipin al Hyphae positi ve Not Available In-Office Order Internal Use Only DO Not Attach Compendium DO Not Attach Compendium, Do Not Delete/merge, [facility] 04/29/2021 08:42:06 04/29/20 21 04/29/2021 wet mount , vagin al atrophic epithelium negati ve Not Available In-Office Order Internal Use Only DO Not Attach Compendium DO Not Attach Compendium, Do Not Delete/merge, [facility] 04/29/2021 08:42:06 04/29/20 21 04/29/2021 urina lysis , dipst ick GLU Negati ve Not Available In-Office Order Internal Use Only DO Not Attach Compendium DO Not Attach Compendium, Do Not Delete/merge, [facility] 04/29/2021 08:05:24 04/29/20 21 04/29/2021 urina lysis , dipst ick SHIVA Negati ve Not Available In-Office Order Internal Use Only DO Not Attach Compendium DO Not Attach Compendium, Do Not Delete/merge, [facility] 04/29/2021 08:05:24 04/29/20 21 04/29/2021 urina lysis , dipst ick KET Negati ve Not Available In-Office Order Internal Use Only DO Not Attach Compendium DO Not Attach Compendium, Do Not Delete/merge, [facility] 04/29/2021 08:05:24 04/29/2004/29/2021 urina lysis , dipst ick SG 1.025 Not Available In-Office Order Internal Use Only DO Not Attach Compendium DO Not Attach Compendium, Do Not Delete/merge, [facility] 04/29/2021 08:05:24 04/29/2004/29/2021 urina lysis , dipst ick BLO Negati ve Not Available In-Office Order Internal Use Only DO Not Attach Compendium DO Not Attach Compendium, Do Not Delete/merge, [facility] 04/29/2021 08:05:24 04/29/2004/29/2021 urina lysis , dipst ick pH 6.0 Not Available In-Office Order Internal Use Only DO Not Attach Compendium DO Not Attach Compendium, Do Not Delete/merge, [facility] 04/29/2021 08:05:24 04/29/2004/29/2021 urina lysis , dipst ick PRO Negati ve Not Available In-Office Order Internal Use Only DO Not Attach Compendium DO Not Attach Compendium, Do Not Delete/merge, [facility] 04/29/2021 08:05:24 04/29/2004/29/2021 urina lysis , dipst ick URO 0.2 E.U. / dl Not Available In-Office Order Internal Use Only DO Not Attach Compendium DO Not Attach Compendium, Do Not Delete/merge, [facility] 04/29/2021 08:05:24 04/29/20 21 04/29/2021 urina lysis , dipst ick NIT negati ve Not Available In-Office Order Internal Use Only DO Not Attach Compendium DO Not Attach Compendium, Do Not Delete/merge, [facility] 04/29/2021 08:05:24 04/29/2004/29/2021 urina lysis , dipst ick ALFREDITO Trace Not Available In-Office Order Internal Use Only DO Not Attach Compendium DO Not Attach Compendium, Do Not Delete/merge, [facility] 04/29/2021 08:05:24 08/19/19 24 08/19/2023 ESTRA DIOL estradiol <5 pg/mL Refer ence Range s: Lutea l Phase : 44-21 1 pg/mL Ovula tion: 86-49 8 pg/mL Folli cular Phase : 13-16 6 pg/mL Postm enopa usal: <55 pg/mL Estra diol test metho d is an elect laura milum inesc ence immun oassa y manuf actur ed by [employer] and perfo rmed on the Modul ar or [place] syste m. This assay has cross react ivity to the drug fulve stran t which may lead to false ly eleva frank estra diol resul ts. There fore, an alter fidel metho d such as liqui d chrom atogr aphy- tande m mass spect romet ry shoul d be used when monit oring estra diol level s in patie nts being treat ed with the drug fulve stran t. Not Available [facility] (Centralized Electronic Ordering - All Locations) Patient Can Go To The Location Of Their Choice, [id number] 08/19/2023 20:22:53 08/19/1908/19/2023 FSH FSH 47.1 mIU/m L Refer ence Range : Folli cular : 3.5-1 2.5 mIU/m L Ovula tion: 4.7-2 1.5 mIU/m L Lutea l: 1.7-7 .7 mIU/m L Postm enopa usal: 25.8- 134.8 mIU/m L Not Available [facility] (Centralized Electronic Ordering - All Locations) Patient Can Go To The Location Of Their Choice, [id number] 08/19/2023 20:22:55 08/19/1908/27/2023 IGP, RFX APTIM A HPV ASCU diagnosis: Commen t NEGAT TASHA FOR INTRA EPITH ELIAL LESIO N OR ANGELITA MOREIRA . THIS SPECI MEN WAS RESCR EENED PART OF OUR QUALI TY CONTR OL PROGR AM. Not Available [facility] ([facility]) [address] [facility], [place], [address], 08/27/2023 12:06:27 08/19/19 24 08/27/2023 IGP, RFX APTIM A HPV ASCU specimen adequacy: Amie esqueda Satis facto ry for evalu ation . No endoc ervic al compo nent is ident ified . The absen ce of an endoc ervic al compo nent was confi rmed by an addit ional scree damon evalu ation . Not Available [facility] ([facility]) [address] [place], [address], 08/27/2023 12:06:27 08/19/19 24 08/27/2023 IGP, RFX APTIM A HPV ASCU clinician provided ICD10: Amie esqueda Z01.4 19 Not Available [facility] ([facility]) [address] [place], [address], 08/27/2023 12:06:27 08/19/19 24 08/27/2023 IGP, RFX APTIM A HPV ASCU performed by: Amie Albrecht, Cytot echno logis t (ASCP ) Not Available [facility] ([facility]) [address] [place], [address], 08/27/2023 12:06:27 08/19/19 24 08/27/2023 IGP, RFX APTIM A HPV ASCU QC reviewed by: Amie Bowden, Cytot echno logis t (ASCP ) Not Available [facility] ([facility]) [address] [place], [address], 08/27/2023 12:06:27 08/19/19 24 08/27/2023 IGP, RFX APTIM A HPV ASCU . . Not Available [facility] ([facility]) [address] [place], [address], 08/27/2023 12:06:27 08/19/19 24 08/27/2023 IGP, RFX APTIM A HPV ASCU note: Amie esqueda The Pap smear is a scree damon test desig trini to aid in the detec tion of saige ligna nt and malig nant condi tions of the uteri ne cervi x. It is not a diagn ostic proce dure and shoul d not be used as the sole means of detec ting cervi mague cance r. Both false -posi tive and false -nega tive repor ts do occur . Not Available [facility] ([facility]) [address] [place], [address], 08/27/2023 12:06:27 08/19/19 24 08/27/2023 IGP, RFX APTIM A HPV ASCU test methodology: Commen t This liqui d based ThinP rep(R ) pap test was scree trini with the use of an image guide karina tellez. Not Available [facility] ([facility]) [address] [place], [address], 08/27/2023 12:06:27 08/19/19 24 08/27/2023 IGP, RFX APTIM A HPV ASCU . Commen t The HPV DNA refle x crite fareed were not met with this speci men resul t there fore, no HPV testi ng was perfo rmed. Not Available [facility] ([facility]) [address] [place], [address], 08/27/2023 12:06:27 08/19/19 24 08/19/2023 fecal occul t blood , stool Occult Blood negati ve Not Available In-Office Order Internal Use Only DO Not Attach Compendium DO Not Attach Compendium, Do Not Delete/merge, [id number] 08/19/2023 08:00:31 08/31/1908/31/2023 [facility] results Sherrellsergey britt Name: AURELIANO CASTRO Lab Acces dari #: [id number] Brigid britt : 1970 (Age: 52) Colle ction Date: 2023 Acces dari Date: 2023 Sign Out Date: 2023 Tissu e Sourc e: 1:END OMETR IAL BIOPS Y Final Diagn osis: Endom etriu m, biops y: - Polyp oid fragm ent of inact tasha endom etriu m with tubal metap lasia and james al break down. - Separ ate fragm ent of benig n endoc ervic al mucos a. Prima ry Patho logis t:Abdoulayekhanh Combs M.D. elect pettydiana shea stacey d out by: Maday Combs M.D. / [facility] Clini mague Histo ry: 53-ye ar-ol d femal e, postm enopa usal bleed ing Gross Descr iptio n: Label ed endo metri al biops y . Recei ruslan in forma china is a 2.0 x 2.0 x 0[address] of blood clot and mucus which is submi tted in toto in 1 casse tte, multi ple piece s, x 2. (KD)* As of August 21, 2023, the speci men proce ssing and stain ing is perfo rmed at [facility] , [address], [place] [address] (CLIA #[id number]). Its perfo rmanc e torito cteri stics are deter mined by [employer] . Phone #: [phone], On-Ca Patho logis t: [id number] Not Available [facility] (Centralized Electronic Ordering - All Locations) Patient Can Go To The Location Of Their Choice, [id number] 09/08/2023 07:47:01 10/03/1910/02/2024 hemog lobin , gastr ointe young l, stool Occult Blood negati ve Not Available In-Office Order Internal Use Only DO Not Attach Compendium DO Not Attach Compendium, Do Not Delete/merge, [id number] 10/02/2024 14:25:13 10/04/1910/05/2024 IGP, RFX APTIM A HPV ASCU diagnosis: Commen t NEGAT TASHA FOR INTRA EPITH ELIAL LESIO N OR MALIG HARISH . Not Available [facility] ([facility] [place] [address] [place], [address], 10/05/2024 16:31:34 10/04/19 25 10/05/2024 IGP, RFX APTIM A HPV ASCU specimen adequacy: Amie esqueda Satis facto ry for evalu ation . No endoc ervic al compo nent is ident ified . Not Available [facility] ([facility]) [address] [place], [address], 10/05/2024 16:31:34 10/04/19 25 10/05/2024 IGP, RFX APTIM A HPV ASCU clinician provided ICD10: Amie esqueda Z01.4 19 Not Available [facility] ([facility]) [address] [place], [address], 10/05/2024 16:31:34 10/04/19 25 10/05/2024 IGP, RFX APTIM A HPV ASCU performed by: Amie cole, Cytol ogist (ASCP ) Not Available [facility] ([facility]) [address] [place], [address], 10/05/2024 16:31:34 10/04/19 25 10/05/2024 IGP, RFX APTIM A HPV ASCU . . Not Available [facility] ([facility]) [address] [place], [address], 10/05/2024 16:31:34 10/04/19 25 10/05/2024 IGP, RFX APTIM A HPV ASCU note: Amie esqueda The Pap smear is a scree damon test desig trini to aid in the detec tion of saige ligna nt and malig nant condi tions of the uteri ne cervi x. It is not a diagn ostic proce dure and shoul d not be used as the sole means of detec ting cervi mague cance r. Both false -posi tive and false -nega tive repor ts do occur . Not Available [facility] ([facility]) [address] [facility], [place], [address], 10/05/2024 16:31:34 10/04/19 25 10/05/2024 IGP, RFX APTIM A HPV ASCU test methodology: Commen t This liqui d based ThinP rep(R ) pap test was scree trini with the use of an image guide karina tellez. Not Available [facility] ([facility]) [address] [facility], [place], [address], 10/05/2024 16:31:34 10/04/19 25 10/05/2024 IGP, RFX APTIM A HPV ASCU . Commen t The HPV DNA refle x crite fareed were not met with this speci men resul t there fore, no HPV testi ng was perfo rmed. Not Available [facility] ([facility]) [address] [facility], [place], [address], 10/05/2024 16:31:34 08/25/19 24 08/25/2023 US, pelvi s, trans abdom inal + trans vagin al No observ ation record ed. [address], [address], 08/26/2023 09:10:33 08/25/19 24 08/25/2023 US, pelvi s, trans abdom inal + trans vagin al No observ ation record ed. [address], [address], 08/26/2023 09:10:34 Result Notes None recorded. Problems Name Problem SNOMED Code Status Onset Date Resolution Date Notes Provider Name and Address Organization Details Recorded Time Cyst of right ovary 1143723713883 9108 Active 2016 Heike Chery MD [address] [facility], [address], [place], [address], [place] - [facility], 7 10:21:45 Menopausal syndrome 658840177 Active 2017 Heike Chery MD [address], [place], [address], [place] - [facility], 8 14:59:56 Atrophic vaginitis 12709364 Active 2024 Heike Chery MD [address] [facility],[address], [place], [address], [place] - [facility], 5 11:09:59 Problem Notes None recorded. Procedures Surgical History Date Name Laterality Status Provider Name and Address Organization Details Recorded Time 08/31/19 24 Endometrial Biopsy completed Heike Chery MD [address] [facility],[address], [place], [address], [place] - [facility], 08/31/2023 14:42:50 08/26/19 24 Most Recent Mammogram completed Emily Hayswzion QUINN - [facility], 10/02/2024 14:24:52 03/09/20 16 Cholecystectomy completed Emily Mecmodestaywor [place] - [facility], 04/14/2016 10:30:34 07/06/19 01 Caesarean Section completed Emily Wang [place] - [facility], 04/14/2016 10:29:49 Imaging Results None recorded. Procedure Notes None recorded. Medical Equipment None Reported. Allergies Allergen ID Allergen Name Allergen Category Reaction Reaction Severity Criticality Documentation Date Start Date Code Code System Note Provider Name and Address Organization Details Recorded Time 73079 doxycycli ne Not available vomiting Not available Not available 04/14/2016 3640 RxNorm Emily Meczywor null, [place] - [facility], 6 10:22:18 32696 Transderm Scop medicatio n other Not available Not available 04/14/2016 86088 2 RxNorm blurr y visio n patch Emily Meczywor null, [place] - [facility], 6 10:23:08 Medications Name Sig Start Date Stop Date Status Note LastModified by Organization Details LastModified Time amoxicillin 500 mg capsule Take 1 capsule every 8 hours by oral route for 7 days. 08/18 completed Not Available Not Available Not Available methocarbam ol 500 mg tablet TAKE 2 TABLETS BY MOUTH DAILY AT BEDTIME 09/26 completed Not Available Not Available Not Available Estring 2 mg (7.5 mcg/24 hour) vaginal ring Insert 1 vaginal ring every 3 months by vaginal route for 90 days. 2024 active Not Available Not Available Not Avai lable tizanidine 2 mg tablet 04/19 completed Not Available Not Available Not Available fluconazole 150 mg tablet Take 1 tablet every day by oral route at bedtime for 1 day. 08/18 completed Not Available Not Available Not Available ondansetron HCl 4 mg tablet 04/14 completed Not Available Not Available Not Available methylpredn isolone 4 mg tablet 04/29 completed Not Available Not Available Not Available sulfamethox azole 800 mg-trimetho prim 160 mg tablet 04/19 completed Not Available Not Available Not Available tramadol 50 mg tablet TAKE 1 TABLET BY MOUTH EVERYDAY AT BEDTIME active Not Available Not Available No t Available phendimetra zine tartrate 35 mg tablet TAKE ONE CAPSULE BY MOUTH TWO TIMES DAILY EVERY 4-6 HOURS WITH LAST DOSE NOT AFTER 4PM.PA* * 10/02 completed Not Available Not Available Not Available meloxicam 7.5 mg tablet 04/14 completed Not Available Not Available Not Available hydromorpho ne 2 mg tablet 04/14 completed Not Available Not Available Not Available methocarbam ol 750 mg tablet TAKE 2 TABLETS BY MOUTH DAILY AT BEDTIME active Not Available Not Available No t Available estradiol 1 mg tablet Take 1 tablet every day by oral route for 90 days. 2024 active Not Available Not Available Not Avai lable nitrofurant oin macrocrysta l 100 mg capsule 08/18 completed Not Available Not Available Not Available dexamethaso ne 4 mg tablet 04/14 completed Not Available Not Available Not Available progesteron e micronized 200 mg capsule Take 1 capsule every day by oral route at bedtime. 2024 active Not Available Not Available Not Avai lable ibuprofen 600 mg tablet 04/19 completed Not Available Not Available Not Available methylpredn isolone 4 mg tablets in a dose pack 04/19 completed Not Available Not Available Not Available fluoxetine 20 mg capsule TAKE 4 CAPSULES BY MOUTH EVERY DAY 08/18 completed Not Available Not Available Not Available amoxicillin 875 mg-potassiu m clavulanate 125 mg tablet 04/19 completed Not Available Not Available Not Available bupropion HCl XL 300 mg 24 hr tablet, extended release 08/18 completed Not Available Not Available Not Available bupropion HCl XL 150 mg 24 hr tablet, extended release TAKE 1 TABLET BY MOUTH EVERY 24 HOURS 08/18 completed Not Available Not Available Not Available magnesium active Not Available Not Paulina ilable Not Available Vitamin C 500mg 08/18 completed Not Available Not Available Not Available Vitamin D3 with 5000 with 1000 k 08/18 completed Not Available Not Available Not Available Remifemin Menopause 08/18 completed Not Available Not Available Not Available Curcumin with flax seed x2 400mg 08/18 completed Not Available Not Available Not Available estradiol 10 mcg vaginal tablet Insert 1 tablet twice a week by vaginal route for 84 days. 2024 active Not Available Not Available Not Avai lable Multi Vitamin 08/18 completed Not Available Not Available Not Available Viactiv 650 mg-12.5 mcg-40 mcg chewable tablet Take by oral route. 08/18 completed Not Available Not Available Not Available Vitals Date Recorded Body temperature Body weight Body mass index (BMI) Body height Heart rate Systolic And Diastolic Provider Name and Address Organization Details Last Updated DateTime 4 97.2 [degF] 84355.3 8 g 30.1 kg/m2 162.56 cm 67 /min 126/79 mm[Hg] Emily Wang [place] - [facility], 4 08:03:19 Date Recorded Body height Body mass index (BMI) Body weight Heart rate Systolic And Diastolic Provider Name and Address Organization Details Last Updated DateTime 08/31/2023 162.56 cm 30.1 kg/m2 31368.1 g 61 /min 126/78 mm[Hg] roly craig [place] - [facility], 08/31/2023 14:12:46 Date Recorded Body height Provider Name an d Address Organization Details Last Updated DateTime 09/09/2023 162.56 cm Emily [facility], 09/09/2023 09:25:20 Date Recorded Body height Body mass index (BMI) Body weight Heart rate Systolic And Diastolic Provider Name and Address Organization Details Last Updated DateTime 10/02/2024 160.02 cm 27.1 kg/m2 87322.35 g 70 /min 119/50 mm[Hg] Emily Wang [place] - [facility], 10/02/2024 14:26:04 Date Recorded Body height Body mass index (BMI) Body weight Heart rate Body temperature Systolic And Diastolic Provider Name and Address Organization Details Last Updated DateTime 162.56 cm 26.4 kg/m2 79373.2 2 g 77 /min 97.3 [degF] 127/72 mm[Hg] Kimberlyn Sheets [facility], 08:11:36 Social History Question Answer Notes LastModified by Organizat ion Details LastModified Time Tobacco Smoking Status Never Smoker Not Available [facility] 04/16/2020 03:19:39 What Is Your Level Of Caffeine Consumption? Moderate [id number] Information not available 04/16/2020 In The 14 Days Before Symptom Onset, Have You Had Close Contact With A Laboratory-confirm ed COVID-19 While That Case Was Ill? No Information n ot available 04/29/2021 In The 14 Days Before Symptom Onset, Have You Had Close Contact With A Person Who Is Under Investigation For COVID-19 While That Person Was Ill? No Information not available 04/29/2021 Have You Been To An Area Known To Be High Risk For COVID-19? No Information not available 04/29/2021 What Type Of Diet Are You Following? REGULAR [id number] Information n ot available 04/16/2020 Which Illicit Or Recreational Drugs Have You Used? No [id number] Information not available 04/16/2020 Do You Reside In Or Have You Traveled To An Area Where Ebola Virus Transmission Is Active? No [id number] Information not available 04/16/2020 Education 4 Year College Information not available 04/14/2016 What Is The Highest Grade Or Level Of School You Have Completed Or The Highest Degree You Have Received? [id number] Information not available 04/29/2021 Who Is Your Employer? [employer] Information not available 08/19/2023 How Many Days In The Past Year Have You Had A Heavy Drinking Consumption (4+ Female, 5+ Male)? 0 Information no t available 04/14/2016 Are There Any Guns Present In Your Home? No Information not available 04/29/2021 High Number Of Sexual Partners No Information not available 04/14/2016 To Which Gender Do You Self-identify? Female Information n ot available 04/14/2016 Marital Status Informatio n not available 04/14/2016 What Was The Date Of Your Most Recent Tobacco Screening? 10/02/2024 Information not available 10/02/2024 What Is Your Relationship Status? Information not available 04/29/2021 Are You Sexually Active? Yes [id number] Information not available 04/16/2020 How Much Tobacco Do You Smoke? No Information not available 09/26/2020 General Stress Level High Information not available 09/26/2020 Have You Recently (within The Last 12 Weeks, Or During A Current ) Traveled To Or Lived In A Zika-affected Area? No Information not available 04/14/2016 Sex: Female Functional Status Question Answer Note LastModified by Organizat ion Details LastModified Time Do you use any illicit or recreational drugs? No Information not available 08/19/2023 Do you or have you ever used any other forms of tobacco or nicotine? No Information not available 04/29/2021 What is your level of alcohol consumption? None [id number] Information not available 04/16/2020 Do you or have you ever used smokeless tobacco? Never used smokeless tobacco Information not available 09/26/2020 Are you currently employed? 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 Never used electronic cigarettes Information not available 09/26/2020 What is your exercise level? Moderate [id number] Information not available 04/16/2020 Mental Status Question Answer Note LastModified by Organization D etails LastModified Time Do you feel stressed (tense, restless, nervous, or anxious, or unable to sleep at night)? [id number] Information not available 04/29/2021 Family History Relationship Description Onset Age of this Age Resolved Age Notes LastModified by Organization Details LastModified Time Father Malignant neoplasm of colon 40 tmeczywor Not available 2015 10:25:59 Paternal Uncle Malignant neoplasm of colon tmeczywor Not available 2015 10:26:19 Maternal Aunt Malignant neoplasm of cervix uteri tmeczywor Not available 06/2015 10:26:47 Medical History Condition Response Anesthesia complications N High Blood Pressure N Candidate for MyRisk panel N Autoimmune Condition N Thyroid Problems N Kidney or Bladder Problems N Depression N GI Problems N Lung Disease N Defects or Inherited Disease N Anemia N History of Ovarian Cancer N History of Breast Cancer N CIPRIANO exposure N BRCA testing in past N Osteopenia N Psychiatric Illness N Diabetes N Anxiety Disorder N Arthritis N Headaches or Migraines N Infertility N Asthma N History of Cancer N Endometriosis N Hepatitis N Heart Disease N Hypertension N Osteoporosis N Gynecological History Statement/Question Response Flow Moderate Date of LMP 08/13/2023 Menses Monthly Y Duration of Flow (days) Age at Menarche 14 Current Control Method Partner Vas ectomy Most Recent Mammogram 08/26/2023 Age at First Child 34 Obstetrics History GPAL:G 2 P 2 0 0 2 Type Value Full Term 2 Living 2 Total 2 Immunizations Vaccine Type Date Status Note Provider Nam e and Address Organization Details Recorded Time Influenza, split virus, quadrivalent, preservative 6 completed [facility], 04/14/2016 10:25:10 Influenza, split virus, quadrivalent, preservative 7 completed [facility], 04/14/2017 09:18:47 Influenza, split virus, quadrivalent, preservative 8 completed Emily salcedo [place] - [facility], 04/19/2018 14:24:10 Influenza, split virus, quadrivalent, preservative 0 completed Emily Hayswzion salcedo [place] - [facility], 09/26/2020 08:15:04 COVID-19, mRNA, LNP-S, PF, 30 mcg/0.3 mL dose 1 completed Emily Hayswzion salcedo [place] - [facility], 09/26/2020 08:15:20 COVID-19, mRNA, LNP-S, PF, 30 mcg/0.3 mL dose 1 completed Kimberlyn salcedo [place] - [facility], 04/29/2021 08:14:34 COVID-19, mRNA, LNP-S, PF, 30 mcg/0.3 mL dose 1 completed [place] [facility], 04/29/2021 08:14:53 Past Encounters Encounter ID Performer Location Encounter Start Date Encounter Closed Date Diagnosis/Indication Diagnosis SNOMED-CT Code Diagnosis ICD10 Code Diagnosis IMO Codes Diagnosis Note [id number] MD HEIKE Angel MD [address] [place] [address], [address] [place] [address] 04/14/2016 10:05:56 04/14/2016 13:04:32 Specialized medical examination 51095782 Z01.419 Screening for malignant neoplasm of rectum 860935505 Z12.12 Screening mammography 24 782051 Z12.31 Candidal vulvovaginitis 75491987 B37.3 [id number] MD HEIKE Angel MD [address] [facility], [address] [place] [address] 04/14/2017 09:08:01 04/14/2017 11:42:46 Specialized medical examination 04485137 Z01.419 Screening for malignant neoplasm of rectum 726567013 Z12.12 Screening mammography 24 381337 Z12.31 Cyst of ovary 20389680 N 83.201 [id number] MD HEIKE Angel MD [address] [place] [address],[place] [address] 06/04/2017 09:57:33 06/04/2017 10:57:18 Cyst of right ovary 4568016175 2117926 N83.01 Pain in pelvis 82144732 R10.2 [id number] MD HEIKE Angel MD [address] [place] [address],[place] [address] 11/23/2017 13:50:48 11/23/2017 15:28:00 Pain in pelvis 83446798 R10.2 Cyst of ovary 49849104 N 83.201 [id number] MD HEIKE Angel MD [address] [place] [address] [place] [address] 04/19/2018 14:08:23 04/19/2018 15:40:38 Specialized medical examination 06755745 Z01.419 Screening for malignant neoplasm of rectum 532038682 Z12.12 Screening mammography 24 441728 Z12.31 Menopausal syndrome 1237 19463 N95.1 [id number] MD HEIKE Angel MD [address] [place] [address], [place] [address] 09/26/2020 08:06:56 09/26/2020 10:00:26 Specialized medical examination 27517792 Z01.419 Screening for malignant neoplasm of rectum 963011884 Z12.12 Screening mammography 24 888492 Z12.31 [id number] MD HEIKE Angel MD [address] [place] [address], [place] [address] 04/29/2021 08:04:14 04/29/2021 09:47:57 Acute lower urinary tract infection 435007230 R30.0 Candidal vulvovaginitis 14563394 B37.3 Pain in pelvis 17836056 R10.2 Cyst of right ovary 1223 015739 8381483 N83.01 [id number] MD HEIKE Angel MD [address] [place] [address],[place] [address] 08/19/2023 07:57:26 08/19/2023 13:13:08 Specialized medical examination 82569473 Z01.419 Screening for malignant neoplasm of rectum 513398146 Z12.12 Screening mammography 24 256160 Z12.31 Postmenopa usal bleeding 42562930 N95.0 [id number] MD HEIKE Angel MD [address] [place] [address] 08/31/2023 14:08:44 08/31/2023 14:48:17 Postmenopausal bleeding 06392008 N95.0 [id number] MD HEIKE Angel MD [address] [place] [address] 09/09/2023 09:21:19 09/09/2023 16:16:35 Menopausal syndrome 025636368 N95.1 [id number] MD HEIKE Angel MD [address] [facility] [place] [address] 10/02/2024 14:12:42 10/02/2024 14:49:37 Menopausal syndrome 858683691 N95.1 Specialize d medical examination 94076759 Z01.419 Screening for malignant neoplasm of rectum 190728886 Z12.12 Screening mammography 24 181985 Z12.31 Atrophic vaginitis 34279 000 N95.2 91454 Health Concerns Section Related Observation LastModified by Organization Detai ls LastModified Time None Recorded Concern Status LastModified by Organization Details LastModified Time None Recorded Advance Directives Directive None Recorded Payers Insurance Date Sequence Insurance Name Policy Number Policy Franco Covered Member ID Franco Member ID Guarantor Name 10/02/2024 1 [employer] - OPEN ACCESS PLUS [id number] Moreno Khalil [id number] Kenzie Khalil 10/02/2024 1 BLUE BENEFIT [employer] [facility] [id number] Kenzie Khalil [id number] Kenzie Khalil Notes Date Note Type Note Provider Name and Address Organization Details Recorded Time 04/29/2021 text/html She is here for a 5 day complaint of right sided pelvic pain, and vaginal pruritus. IT started as right back pain in her upper back, she went to a stretch therapist to see if it would stretch out, but it persisted. Then the pain migrated to her lower right front pelvis, then a day later to her bladder where she notes tight bladder, spasms. After that she noted pain in her urethra. Her urine was white and cloudy. Since yesterday her urine has improved and her pain is nearly resolved, but she still is having vaginal pruritis. Menses are irregular every 1 to 2 months or so, is s/p vasectomy. Heike Chery MD [address], [place], [address], [place] - [facility], 04/29/2021 09:12:24 08/19/2023 text/html She is here for annual, and a concern of possible PMB. She had not had any menses in 14 to 18 months, and then last week she had a full on period, with clots. The bleeding is resolved now. she was having vasomotor symptoms prior to last month, they stopped recently and at present she has no vasomotor symptoms. She takes no herbal therapy ro supplement for menopause, she was taking Remivfemin but not in months, she could not find it on amaz[employer] due to back orders. She moved from [facility] to [facility], is a night nurse ther, likes it very much. Her did not attempt (suicide) last year, that's a plus! and her son's depression is ell stabilized on meds. 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 Heike Chery MD [address], [place], [address], [place] - [facility], 08/19/2023 08:43:45 08/31/2023 text/html She is here for emb for pmb, her labs are in the menopause range. Heike Chery MD [address], [place], [address], [place] - [facility], 08/31/2023 14:43:32 09/09/2023 text/html This visit is a phone telehealth visit. The patient consented to the visit by phone. The patient was at home at the time of the call and the provider and patient were the only people on the line. I was at [address] [place] [address], [place] [address], [place], [place], at the time of the call. She had a recent bleeding episode and she was severe vasomotor symptoms prior to that, after the menses she felt better for a while but now she is having severe hot flashes, night sweats, mood instability. Heike Chery MD [address] [facility],[address], [place], [address], [place] - [facility], 09/09/2023 10:00:49 10/02/2024 text/html She is here for annual, doing well on the oral HRT but is starting to have urinary stress incontinence, is wearing a underwear with pad every day now. No vaginal bleeding since last visit. ___ Note from 2023: She is here for annual, and a concern of possible PMB. She had not had any menses in 14 to 18 months, and then last week she had a full on period, with clots. The bleeding is resolved now. she was having vasomotor symptoms prior to last month, they stopped recently and at present she has no vasomotor symptoms.She takes no herbal therapy ro supplement for menopause, she was taking Remivfemin but not in months, she could not find it on [employer] due to back orders.She moved from [employer] to [facility], is a night nurse ther, likes it very much.Her did not attempt (suicide) last year, that's a plus! and her son's depression is ell stabilized on meds. Heike Chery MD [address] [facility],[address], [place], [address], [place] - [facility], 10/02/2024 14:47:11 OBGyn Episode No OBEpisode recorded.
--- OUTSIDE RECORDS SUMMARY | 2025-06-12 19:28 | XMS_ITS | Encounter Summary ---
Author Organization [facility] Address [address] [place] [phone] Phone Care Team Providers Care Refractory Manager Name Role Phone Jose Ramos MD Primary Care Provider [phone] Encounter Details Date Type Department Care Team (Late st Contact Info) Description 10/08/2017 Procedure Pass [facility] [address] [place] [address] Social History Tobacco Use Types Packs/Day Years [...] on filedocumented in this encounter Care Teams Refractory Manager Relationship Specialty Start Date End Date Jose Ramos MD [address] [facility] [place] [address] PCP - General Internal Medicine 04/06/17 documented as of this encounter Additional Source Comments The information contained in this document represents components of the legal health record. It is not the complete legal health record.[facility]
--- OUTSIDE RECORDS SUMMARY | 2025-06-12 19:28 | XMS_ITS | Patient Health Record ---
Author Organization [facility] Address [address] [place] [id number] Care Team Providers Care Receivables Specialist Name Role Phone Kevin Sprague Unavailable [phone] Allergies Allergen (clinical drug ingredient) Drug/Non Drug [...] W/U Status Risk Notes Problem Mixed hyperlipidemia (227498738) Mixed hyperlipidemia (E78.2) Active confirmed Problem Brachial plexus disorder (2162574) Brachial plexus disorders (G54.0) Active confirmed Problem Menopause (068783638) Menopausal and female climacteric states (N95.1) Active [...] Date Coverage End Date [employer] [id number] [place] [address] [id number] Kenzie Khalil Self - patient is the insured 4 Medical (General) History Medical History History ICD Code cholecystectomy
--- OUTSIDE RECORDS SUMMARY | 2025-06-12 19:28 | XMS_ITS | Clinical Summary ---
Author Organization [facility] Address [address] [place] [address] Phone Care Team Providers Care Electrical Unit Rebuilder Name Role Phone Jose Ramos MD Primary Care Provider [phone] Allergies Active Allergy Reactions Criticality Noted Date Comments Doxycycline Hyclate Nausea and/or Vomiting 09/13 Scopolamine Base Other (See Comments) 8 Blurred vision Medications tramadol HCl (ULTRAM ORAL) Take 50 mg by mouth nightly. Active methocarbamol (ROBAXIN ORAL) Take 1,000 mg by mouth nightly. Active Active Problems Problem Noted Date Diagnosed Date Tendinopathy of right biceps tendon 10/08/2017 Strain of right trapezius muscle 10/08/2017 Family History Medical History Relation Comments Clotting disorder Father Relation Status Comments Father Social History Tobacco Use Types Packs/Day Years Used Date Smoking Tobacco: Never Smokeless Tobacco: Never Alcohol Use Standard Drinks/Week Comments No 0 (1 standard drink = 0.6 oz pur e alcohol) Education Answer Date Recorded Are you interested in more education? Not on huzma e 10/09/2022 Are you concerned about learning? [...] on file Sexual Orientation Not on file Last Filed Vital Signs Vital Sign Reading Time Taken Comments Blood Pressure 125/82 05/12/2018 3:08 PM EST Pulse 65 05/12/2018 3:08 PM EST Temperature 37 C (98.6 F) 05/12/2018 3:08 PM EST Respiratory Rate - - Oxygen Saturation 97% 05/12/2018 3:08 PM EST Inhaled Oxygen Concentration - - Weight 67.1 kg (148 lb) 05/12/2018 3:08 PM EST Height 162.6 cm (5' 4 ) 05/12/2018 3:08 PM EST Body Mass Index 25.4 05/12/2018 3:08 PM EST Plan of Treatment Health Maintenance Due Date Last Done Comments Adult Td,Tdap Booster 1970 LIPID PANEL 1970 DEPRESSION SCREENING 1983 HEPATITIS C SCREENING 09/22/1989 HIV ONE-TIME SCREENING (18-6 5 YEARS) 09/22/1989 PAP SMEAR 09/22/1992 MAMMOGRAM 2011 COLOGUARD 09/22/2016 COLONOSCOPY 09/22/2016 COLORECTAL CANCER SCREENING 09/22/2016 FIT TEST 09/22/2016 FOBT 09/22/2016 SIGMOIDOSCOPY 09/22/2016 VIRTUAL COLONOSCOPY 09/22/2016 PNEUMOCOCCAL VACCINES (50+ years) (1 of 1 - PCV) 09/22/2021 ZOSTER VACCINES (1 of 2) 09/22/2021 INFLUENZA VACCINE (#1) 2025 8, 03/23/2017, 03/30/2016 COVID-19 VACCINE (3 - 2024-2 6 season) 2025 06/28/2020, 06/10/2020 RSV VACCINE (1 - 1-dose 75+ series) 09/22/2046 SMOKING STATUS SCREENING (On ce After 26 Yrs) Completed 05/12/2018 HEPATITIS A VACCINES Aged Out No long er eligible based on patient's age to complete this topic HIB VACCINES Aged Out No longer eligi ble based on patient's age to complete this topic MENINGOCOCCAL VACCINES (ACWY) Aged Out No longer eligible based on patient's age to complete this topic MENINGOCOCCAL VACCINES (B) Aged Out N o longer eligible based on patient's age to complete this topic Medical Devices Not on file Insurance [employer] PPO Member Subscriber Plan / Payer (Ef fective 2013-Present) Name:Kenzie Wu Relation to Subscriber:Spouse Name:MARIAM WU Date of :1970 (Home) Address: [address] [place] [address] Payer ID:[id number] (NA) Type:PPO Address: [facility] [address] [place] [id number] [employer] PPO Member Subscriber Plan / Payer (Ef fective 2013-Present) Name:Kenzie Wu Relation to Subscriber:Spouse Name:MARIAM WU Date of :1970 (Home) Address: [address] [place] [address] Payer ID:[id number] (NA) Type:PPO Address: [address] [place] [phone] CIGNA PPO CIGNA PPO CIGNA PPO CIGNA PPO CIGNA PPO CIGNA PPO CIGNA PPO Care Teams Electrical Unit Rebuilder Relationship Specialty Start Date End Date Jose Ramos MD [address] [place] [address] PCP - General Internal Medicine 04/06/17 Additional Source Comments The information contained in this document represents components of the legal health record. It is not the complete legal health record.[facility]
--- OUTSIDE RECORDS SUMMARY | 2025-06-12 19:28 | XMS_ITS | Encounter Summary ---
Author Organization [facility] Address [facility] [employer] [facility] [address] [place] [address] Phone Care Team Providers Care Passenger Car Conductor Name Role Phone Jose Ramos MD Primary Care Provider [phone] Encounter Details Date Type Department Care Team (Late st Contact Info) Description 06/15/2018 Transcribe [facility] for Outpatient Care, Ultrasound [address] [facility], 3rd [place] [address] Lakisha Huggins [address] [place] [id number] [email or web address] Social History Tobacco Use Types Packs/Day Years [...] on filedocumented in this encounter Care Teams Passenger Car Conductor Relationship Specialty Start Date End Date Jose Ramos MD [address] [place] [address] PCP - General Internal Medicine 04/06/17 documented as of this encounter Additional Source Comments The information contained in this document represents components of the legal health record. It is not the complete legal health record.[facility]
--- OUTSIDE RECORDS SUMMARY | 2025-06-12 19:28 | XMS_ITS | Encounter Summary ---
Author Organization [facility] Address [address] [place] [address] Phone Care Team Providers Care Batch Tank Controller Name Role Phone Jose Ramos MD Primary Care Provider [phone] Encounter Details Date Type Department Care Team (Late st Contact Info) Description 02/02/2018 Telephone [facility] Log in [address] [address] Lakisha Du, DO [address] [place] [address] [id number] [place] [address] [email or web address] Social History Tobacco Use Types Packs/Day Years Used Date Smoking Tobacco: Never Smokeless Tobacco: Never Comments Unknown Sex and Gender Information Value Date Recorded Sex Assigned at Not on file Legal Sex Female 12:39 PM EDT Gender Identity Not on file Sexual Orientation Not on file documented as of this encounter Plan of Treatment Not on file documented as of this encounter Visit Diagnoses Not on filedocumented in this encounter Care Teams Batch Tank Controller Relationship Specialty Start Date End Date Jose Ramos MD [address] [place] [address] PCP - General Internal Medicine 04/06/17 documented as of this encounter Additional Source Comments The information contained in this document represents components of the legal health record. It is not the complete legal health record.[facility]
--- OUTSIDE RECORDS SUMMARY | 2025-06-12 19:28 | XMS_ITS | Encounter Summary ---
Author Organization [facility] Address [address] [place] [address] Phone Care Team Providers Care Car Salter Name Role Phone Jose Ramos MD Primary Care Provider Encounter Details Date Type Department Care Team (Late st Contact Info) Description 05/05/2019 Transcribe Orders [facility] for Outpatient Care, Radio Flouroscopy [address] [place] [address] Lakisha Huggins [address] [place] [phone] [email or web address] Social History Tobacco Use Types Packs/Day [...] on filedocumented in this encounter Care Teams Car Salter Relationship Specialty Start Date End Date Jose Ramos MD [address] [facility] [place] [address] PCP - General Internal Medicine 04/06/17 documented as of this encounter Additional Source Comments The information contained in this document represents components of the legal health record. It is not the complete legal health record.[facility]
--- OUTSIDE RECORDS SUMMARY | 2025-06-12 19:29 | XMS_ITS | Encounter Summary ---
Author Organization [facility] Address [address] [place] [address] Phone Care Team Providers Care Hand Stonecutter Name Role Phone Jose Ramos MD Primary Care Provider [phone] Encounter Details Date Type Department Care Team (Late st Contact Info) Description 04/28/2018 Transcribe Orders [facility] for Outpatient Care, Radio Flouroscopy [address] [place] [address] [email or web address] Social History Tobacco Use Types Packs/Day Years [...] on filedocumented in this encounter Care Teams Hand Stonecutter Relationship Specialty Start Date End Date Jose Ramos MD [address] [place] [address] PCP - General Internal Medicine 04/06/17 documented as of this encounter Additional Source Comments The information contained in this document represents components of the legal health record. It is not the complete legal health record.[facility]
--- OUTSIDE RECORDS SUMMARY | 2025-06-12 19:29 | XMS_ITS | Encounter Summary ---
Author Organization [facility] Address [address] [place] [address] Phone Care Team Providers Care Lasting Machine Operator Bed Name Role Phone Jose Ramos MD Primary Care Provider [phone] Encounter Details Date Type Department Care Team (Late st Contact Info) Description 04/11/2018 Telephone [facility] Log in [address] [address] Lakisha Du, DO [address] [place] [address] [phone] [place] [address] [email or web address] Social History Tobacco Use Types Packs/Day Years [...] on filedocumented in this encounter Care Teams Lasting Machine Operator Bed Relationship Specialty Start Date End Date Jose Ramos MD [address] [place] [address] PCP - General Internal Medicine 04/06/17 documented as of this encounter Additional Source Comments The information contained in this document represents components of the legal health record. It is not the complete legal health record.[facility]
--- OUTSIDE RECORDS SUMMARY | 2025-06-12 19:29 | XMS_ITS | Encounter Summary ---
Author Organization [facility] Address [address] [place] [address] Phone Care Team Providers Care Avionics Shop Supervisor Name Role Phone Jose Ramos MD Primary Care Provider [phone] Encounter Details Date Type Department Care Team (Late st Contact Info) Description 03/14/[address] [facility] Log in [address] [address] Lakisha Du, DO [address] [place] [address] [phone] [place] [address] [email or web address] Social History Tobacco Use Types Packs/Day Years [...] on filedocumented in this encounter Care Teams Avionics Shop Supervisor Relationship Specialty Start Date End Date Jose Ramos MD [address] [place] [address] PCP - General Internal Medicine 04/06/17 documented as of this encounter Additional Source Comments The information contained in this document represents components of the legal health record. It is not the complete legal health record.[facility]
--- OUTSIDE RECORDS SUMMARY | 2025-06-12 19:29 | XMS_ITS | Clinical Summary ---
Author Organization [facility] it Address [address] [place] [address] Care Team Providers Care Drum Dyeing Machine Operator Name Role Phone Jose Ramos MD Primary Care Provider [phone] Social History Tobacco Use Types Packs/Day Years Used Date Smoking Tobacco: Never Assessed Comments Unknown Sex and Gender Information Value Date Recorded Sex Assigned at Not on file Legal Sex Female 8:14 AM EST Gender Identity Not on file Sexual Orientation Not on file Plan of Treatment Health Maintenance Due Date Last Done Comments Hepatitis B Vaccines (1 of 3 - 19+ 3-dose series) 09/22/1990 Cervical Cancer Screening: Pap Smear 09/22/1992 DTaP,Tdap,and Td Vaccines (2 - Td or Tdap) 06/09/2020 06/09/2010 Pneumococcal Vaccine: 50+ Years (2 of 2 - PCV) 09/22/2021 10/18/2007 Breast Cancer Screening 02/21/2023 02/21/2021 Zoster Vaccines (1 of 2) 09/08/2023 07/14/2023, 02/12 Depression Screening 06/14/2024 COVID-19 Vaccine (2024- season) 2025 04/07/2024, 04/30/2023, 04/02/2021, Additional history exists Influenza Vaccine (#1) 2025 , 05/31/2023, 04/01/2020, Additional history exists RSV Immunization Adult Patients (1 - 1-dose 75+ series) 09/22/2046 Varicella Vaccines Aged Out 07/14/2023, 03/02/2023 No longer eligible based on patient's age to complete this topic HIB Vaccines Aged Out No longer eligi [...] Procedure Name Priority Date/Time Associated Diagnosis Comments [facility] SCREENING DIGITAL Routine 02/21/2021 11:45 AM EDT Encounter for screening mammogram for malignant neoplasm of breast from Last 3 Months or Most Recently Relevant to Health Maintenance Results * HUANG SCREENING DIGITAL (02/21/2021 11:45 AM EDT) Anatomical Region Laterality Modality Mammography 02/21/2021 8:21 AM EDT Narrative 02/21/2021 11:45 AM EDT [facility] Diagnostic Imaging Department [address] [place] [address] Patient: MAXINE WU aKt /Age/Sex: 1970 - 50 - F Unit#: [id number] Location/Status: [facility]/REG CLI Mnemonic/Ordering Site: [facility] Ordering Physician: HEIKE SIEGEL MD Huang Screening Digital - 02/21/21851 EXAM: [facility] Screening Digital EXAM DATE AND TIME: 02/21/2021 8:54 AM HISTORY: Screening. COMPARISON: 01/13/17, 09/13/13 TECHNIQUE: CC and MLO views of both breasts were obtained using full field digital mammography. Bilateral digital breast tomosynthesis was performed in the MLO projection. Computer aided detection with the AriadNEXT.2-Studio was employed. TISSUE DENSITY: c. The breasts [...] Routine screening mammogram BILATERAL in 1 year. [address], [address] 3341F, 7025F Dictating Physician: THEO LAWSON MD Electronically Signed by: THEO LAWSON MD Dic Date/Time: 02/21/21 1145 Sign date/Time: 02/21/21 1145 Procedure Note Theo Lawson MD - 06/10/2022 [facility] Diagnostic Imaging Department [address] [place], [place] [id number] Patient: MAXINE WU/Age/Sex: 1970 - 50 - F Unit#: [id number] Location/Status: [facility] Mnemonic/Ordering Site: [facility] Ordering Physician: HEIKE SIEGEL MD Huang Screening Digital - 02/21/21 - 851 EXAM: [facility] Screening Digital EXAM DATE AND TIME: 02/21/2021 8:54 AM HISTORY: Screening. COMPARISON: 01/13/17, 09/13/13 TECHNIQUE: CC and MLO views of both breasts were obtained using fullfield digital mammography. Bilateral digital breast tomosynthesis was performedin the MLO projection. Computer aided detection with the AriadNEXT.2-XillianTVas employed. TISSUE DENSITY: c. The breasts are [...] Routine screening mammogram BILATERAL in 1 year. [address], [address] 3341F, 7025F Dictating Physician: THEO LAWSON MD Electronically Signed by: THEO LAWSON MD Dic Date/Time: 02/21/21 1145 Sign date/Time: 02/21/21 114 Heike Siegel MD IMG BI PROCEDURES Final Resu lt from Last 3 Months or Most Recently Relevant to Health Maintenance Care Teams Drum Dyeing Machine Operator Relationship Specialty Start Date End Date Jose Ramos MD [address] [facility] [place] [phone] PCP - General Internal Medicine 01/15/17
== END 2025-06-12 19:22 | disposition home or self-care (01) ==
LOC: HO.MRI 19:21
PROVIDERS: Visit Provider Physical Medicine & Rehabilitation
DX: M54.12 Radiculopathy, cervical region (principal)
CPT/HCPCS: 72141

== ENCOUNTER → 2025-06-12 19:22 | Outpatient (BNV) | payer OTHER, SELFPAY | PROVIDERS: Visit Provider Radiology Diagnostic Radiology | DX: M47.812 Spondylosis without myelopathy or radiculopathy, cervical region (principal) | CPT/HCPCS: 72141 ==